=== PATIENT | male | born 1990 | race Caucasian/White ===

== ENCOUNTER 2023-10-12 23:09 | Inpatient (IN) | payer OTHER, SELFPAY ==
[2023-10-12] VITALS (7 sets, daily range): BP systolic 130–164; BP diastolic 80–138; BMI 29.6; BMI 30.7
[2023-10-12 06:40] LABS: % Basophils 0.4 % (0-2); % Eosinophils 2.7 % (0-6); % Immature Granulocytes 0.4 % (0-0.5); % Lymphocytes 23.9 % (20.5-51.1); % Neutrophils 66.6 % (42.2-75.2); Absolute Eosinophils 0.3 10^3/uL (0-0.7); Absolute Lymphocytes 2.6 10^3/uL (1.2-3.4); Absolute Monocytes 0.7 10^3/uL (0.1-0.6); Absolute Neutrophils 7.2 10^3/uL (1.4-6.5); Hematocrit 40.7 % (39.0-52.0); Hemoglobin 14.9 g/dL (13.0-18.0); Mean Corp Hgb Conc. 36.6 g/dL (33.0-37.0); Mean Corpuscular Hgb 31.9 pg (27.0-31.0); Mean Corpuscular Volume 87.2 fL (80.0-94.0); Mean Platelet Volume 9.6 fL (7.4-10.4); Nucleated Red Blood Cells % 0 % (-); Platelet Count 222 10^3/uL (130-400); Red Blood Cell Count 4.67 10^6/uL (4.70-6.10); Red Cell Dist. Width 12.3 % (11.5-14.5); White Blood Cell Count 10.9 10^3/uL (4.8-10.8)
[2023-10-12 06:52] LABS: ALT (SGPT) 22 U/L (0-50); AST (SGOT) 27 U/L (17-59); Albumin 4.6 g/dl (3.5-5.0); Alkaline Phosphatase 114 U/L (38-126); Blood Urea Nitrogen 11 mg/dl (9-20); Calcium 9.7 mg/dl (8.4-10.2); Carbon Dioxide 24 mmol/L (22-30); Chloride 109 mmol/L (98-107); Glucose 121 mg/dl (70-99); Potassium 3.7 mmol/L (3.5-5.1); Sodium 137 mmol/L (135-145); Total Bilirubin 1.4 mg/dl (0.2-1.3); Total Protein 7.7 g/dl (6.3-8.2); eGFR > 60.00
[2023-10-12 07:06] LABS: Lipase 2866 U/L (23-300)
--- NOTE | 2023-10-12 07:38 | ED.GENMED ---
History of Present Illness
General
Chief Complaint: Abdominal Pain
Source: patient and records
Exam Limitations: none
Time Seen by Provider: 10/12/23 07:36
Nursing documentation reviewed up to this point in time: agreed with
Travel History
Have you had any contact with someone who has COVID-19?: No
Do you have any symptoms of coronavirus? Fever > 100 degrees, chills, cough, shortness of breath, sore throat, loss of taste or smell, muscle aches, or headache?: No
History of Present Illness
History of Present Illness:
33-year-old male presents emergency department complaining of epigastric pain rating to his upper back with nausea vomiting and diarrhea since yesterday morning. He has been drinking alcohol recently, has a history of alcoholic pancreatitis. He
was hospitalized in July for same. No pseudocyst was found on CT scan.
Past History
Past History
ED Past Medical History: GERD and Other (Alcoholic pancreatitis)
ED Past Surgical History: Cholecystectomy
Social History
Tobacco: Smoker (1ppd)
Alcohol: Daily (2-3 beers/day)
Drug: Marijuana
Review of Systems
Review of Systems
Allergies reviewed?: Yes
All Other Systems: Not applicable
Constitutional: Reports no symptoms
EENT: Reports no symptoms
Respiratory: Reports no symptoms
Cardiac: Reports no symptoms
ABD/GI: Reports abdominal pain, nausea, vomiting and diarrhea
: Reports no symptoms
Musculoskeletal: Reports no symptoms
Skin: Reports no symptoms
Neurological: Reports no symptoms
Endocrine: Reports no symptoms
Hematologic/Lymphatic: Reports no symptoms
Psychiatric: Reports no symptoms
Phy Exam
Physical Exam
Physical Exam:
Physical Exam
General: Afebrile
Neck: supple. no meningeal signs. normal posterior pharynx
Heart: s1/s2 regular rate and rhythm, no murmur. equal radial
pulses.
HEENT: Pupils equal round reactive to light, EOMI
Lungs: no acute respiratory distress. clear bilaterally
Abdomen: normal bowel sounds. Epigastric tenderness. No CVAT
Neuro: alert and oriented. no focal neurological deficits cranial nerves II through XII intact
Skin: no rash
Psychiatric: well kept. interactive and cooperative
Extremities: no edema. no calf tenderness. negative homans. good distal pulses
Course
Orders/Labs/Results
Orders:
Orders
10/12/23 06:34
Complete Blood Count/With Diff Urgent
Comprehensive Metabolic Panel Urgent
Lipase Urgent
10/12/23 07:37
US Abdomen Complete/Upper Urgent
Comment:
Reason For Exam: epigastric pain, lipase elevated
10/12/23 07:44
IV Insert/Care/Rem.- Treatment PRN
Morphine Sulfate 4 mg IV NOW STA
Ondansetron Injectable [Zofran] 4 mg IV NOW STA
10/12/23 07:45
Lactated Ringers [Lr] 1,000 ml IV BOLUS
10/12/23 09:12
Lactated Ringers [Lr] 1,000 ml IV PRN
10/12/23 Lunch
NPO
Allow oral meds: Yes
Allow clear liquids: Sips of Clears
NPO with Ice Chips: Yes
Morphine Sulfate 4 mg IV NOW STA
10/12/23 11:08
Admit/Transfer Patient As Directed
Co-Sign Provider:
Level of Care: Observation services
Assign to:: Telemetry
Physician / Group: Dr. Michael Morton/Hospitalists
Diagnosis: Suspected Acute Pancreatitis
Reason for Telemetry: Arrhythmia
Date to Stop Telemetry: 10/15/23
Time to Stop Telemetry: 11:00
10/12/23 11:10
Code Status As Directed
Resuscitation Status: Full Code
10/12/23 11:13
Case Management Consult Once
Case Management Consult: Other
Comment: Substance abuse counseling
DIETARY CONSULT Routine
Reason for Consult: Nutrition support, possible refeeding guidelines
0.9% Sodium Chloride [Nss (Preservative Free)] See Protocol IV PRN PRN
FOLic ACID [Folvite] 1 mg 0.9% Sodium Chloride 50 ml [Nss] 50 ml IV DAILYPRN
Lorazepam [Ativan] 1 mg IV Q1HPRN PRN
Lorazepam [Ativan] 1 mg PO Q2HPRN PRN
Lorazepam [Ativan] 2 mg IV Q1HPRN PRN
MSAS SCORE As Directed
MSAS Score 0-4: Repeat MSAS every 2 hours until 0-4 for three consecutive assessments, then every 4 hours x 48
hours.
MSAS Score 5-7: For MILD withdrawl symptoms. Repeat MSAS and RASS every 2 hours
MSAS Score 8-11: For MODERATE withdrawal symptoms. Repeat MSAS and RASS every 1 hour. Consider ICU or IMU
level of care.
MSAS Score > 11: For SEVERE withdrawal symptoms. Repeat MSAS and RASS every 1 hour. Notify provider, consider
ICU level of care.
MSAS Additional Instructions: If no improvement or no decrease in score from severe to moderate within 12
hours, consult psychiatry
MSAS Notify Provider: Notify provider if patient requires more than 10 mg of Lorazepam in eight hour period.
10/12/23 11:32
GASTROINTESTINAL CONSULT Routine
Consulting Provider: Geraldine Ledezma
Was physician already notified: Yes
Reason for consult: Suspected Acute Pancreatitis
10/12/23 11:41
Bladder Scan As Directed
Follow Bladder Retention/Intermittent Cath Algorithm?: Yes
PRN if no void in __ hours: 6
Frequency: Per Retention Algorithm
If Bladder Scan Result >: 400
then:: Straight cath
Straight Cath As Directed
Frequency: Per Retention Algorithm
Additional Instructions: straight cath as needed per acute urinary retention algorithm for 24 hrs
Additional Instructions: for bladder scan greater than 400 mL
10/12/23 11:53
Electrocardiogram (*1) Routine
Reason for Study: QTc Monitoring
CR Chest - 2 Views Urgent
Comment:
Reason For Exam: Wheezing
10/12/23 12:00
FOLic ACID [Folvite] 1 mg PO DAILY
Thiamine Injection 200 mg IV Q12
10/12/23 12:41
MR Abdomen W/o & W Contrast Routine
Comment: with MRCP
Reason For Exam: recurrent pancreatitis
Recent pill cam endoscopy?: No
10/12/23 12:44
HYDROmorphone [Dilaudid] 0.5 mg IV Q4HPRN PRN
Ondansetron Injectable [Zofran] 4 mg IV Q6HPRN PRN
10/12/23 12:44
Activity As Directed
Activity Level: As Tolerated
Intake/ Output As Directed
Frequency: q12h
Pneumatic Compression Sleeves As Directed
Type: Knee high
Vital Signs As Directed
Frequency: Per unit guidelines
DX Deep Vein Thrombosis Video Routine
10/12/23 13:00
Flush (0.9% Sodium Chloride) [Flush (Nss)] See Dose Instructions IV PER PROTOCOL
10/12/23 13:02
Alcohol Urgent
B-Hydroxybutyrate Urgent
GGTP Urgent
Lipid Profile [Cardiovascular Evaluation] Routine
Magnesium Urgent
PTT Urgent
Phosphorus Urgent
Prothrombin Time Urgent
10/12/23 15:12
HYDROmorphone [Dilaudid] 0.25 mg IV NOW STA
10/12/23 15:14
Oxycodone [Roxicodone] 5 mg PO NOW STA
10/12/23 16:00
Lactated Ringers [Lr] 1,000 ml IV 250 mls/hr
10/12/23 17:16
Fentanyl, Urine Routine
Urinalysis Routine
Date Specimen was Collected: 10/12/23
Time Specimen was Collected: 17:14
Urine Drug Abuse Screen Routine
Date Specimen was Collected: 10/12/23
Time Specimen was Collected: 17:14
Urine Microscopic Routine
Date Specimen was Collected: 10/12/23
Time Specimen was Collected: 17:14
10/12/23 17:37
IgG Subclass 4 [S] Routine
10/12/23 18:00
Enoxaparin Sodium [Lovenox] 40 mg SC QPM
10/12/23 19:57
HYDROmorphone [Dilaudid] 0.25 mg IV NOW STA
10/13/23 06:08
Complete Blood Count/No Diff IN AM
Comprehensive Metabolic Panel IN AM
Magnesium IN AM
10/14/23 05:55
Complete Blood Count/No Diff IN AM
Comprehensive Metabolic Panel IN AM
10/15/23 06:00
Complete Blood Count/No Diff IN AM
Comprehensive Metabolic Panel IN AM
10/15/23 08:00
Thiamine HCl [Vitamin B1] 100 mg PO BID
10/15/23 11:00
DC Protocol for Telemetry ONCE
10/16/23 06:00
Complete Blood Count/No Diff IN AM
Comprehensive Metabolic Panel IN AM
10/17/23 06:00
Complete Blood Count/No Diff IN AM
Comprehensive Metabolic Panel IN AM
10/18/23 06:00
Complete Blood Count/No Diff IN AM
Comprehensive Metabolic Panel IN AM
10/19/23 06:00
Complete Blood Count/No Diff IN AM
Comprehensive Metabolic Panel IN AM
10/20/23 06:00
Complete Blood Count/No Diff IN AM
Comprehensive Metabolic Panel IN AM
10/21/23 06:00
Complete Blood Count/No Diff IN AM
Comprehensive Metabolic Panel IN AM
10/22/23 06:00
Complete Blood Count/No Diff IN AM
Comprehensive Metabolic Panel IN AM
Abnormal Lab Results
10/12/23 10/12/23 10/12/23
06:34 13:02 17:16
WBC 10.9 H 10^3/uL
(4.8-10.8)
RBC 4.67 L 10^6/uL
(4.70-6.10)
MCH 31.9 H pg
(27.0-31.0)
Absolute Neuts (auto) 7.2 H 10^3/uL
(1.4-6.5)
Absolute Monos (auto) 0.7 H 10^3/uL
(0.1-0.6)
Chloride 109 H mmol/L
(98-107)
Creatinine 0.5 L mg/dL
(0.7-1.3)
Glucose 121 H mg/dl
(70-99)
Total Bilirubin 1.4 H mg/dl
(0.2-1.3)
GGT 293 H U/L
(15-73)
Triglycerides 153 H mg/dl
(10-149)
Lipase 2866 H* U/L
(23-300)
Urine Ketones 3+ A
(Negative)
Ur Leukocyte Esterase Trace A
(Negative)
Urine Opiates Screen Positive H
(Negative)
U Marijuana (THC) Screen Positive H
(Negative)
B-Hydroxybutyrate 0.51 H mmol/L
(0.02-0.27)
10/12/23 06:34
10/12/23 06:34
Vital Signs
Initial and Last Documented VS:
Initial Vital Signs
Temp Pulse Resp BP Pulse Ox
97.6 F 80 20 152/98 96
10/12/23 06:19 10/12/23 06:19 10/12/23 06:19 10/12/23 06:19 10/12/23 06:19
Last Documented Vital Signs
Temp Pulse Resp BP Pulse Ox
98.1 F 74 16 133/87 98
10/14/23 11:25 10/14/23 11:25 10/14/23 11:25 10/14/23 11:25 10/14/23 11:25
MDM/Problems Addressed
Differential Diagnosis Includes:
Pancreatitis, reflux
MDM/Problems Addressed:
33-year-old male with alcoholic pancreatitis. Abdominal ultrasound ordered. IV morphine, Zofran and LR ordered. Admit to hospitalist.
Chronic conditions affecting care: Other (Pancreatitis)
Acute Exacerbation and/or Progression of Chronic Illness: Other (Pancreatitis)
*Radiology
Radiology exam reviewed: radiology read reviewed (Ultrasound abdomen no acute findings)
*Pulse Oximetry
Patient hypoxic: no
*EKG
Interpreted by ED Provider?: NA
*Cold Rolling Coordinator Interpretation
Rate: Cold Rolling Coordinator- N/A
*Critical Care Note
Total Time (30-74mins, 75-104mins- exclusive of procedures): Not Applicable
Data Reviewed
Review of Other/Old Records Reveals: Discharge Summary (Discharge summary from July 2023 for alcoholic pancreatitis)
Source: records
Patient Management
Social determinants of health affecting care: Living situation and Substance abuse (Alcoholism)
Discussion with other providers: Hospitalist
Escalation/DeEscalation of care consider admission/obs:
Admit indicated
ED Attending Note
-
Portions of this chart may have been created with voice recognition software.� Occasional wrong word or��sound alike� substitutions may have occurred due to the inherent limitations of voice recognition software.
Discharge Plan
Departure
Patient Disposition: Admit
Date of Disposition: 10/12/23
Time of Disposition: 07:49
Admit to: Med/Surg
Presentation/result/management discussed w/ accepting MD/DO: Hospitalist
Patient with high blood pressure during this ER visit?: Yes
Condition: Good
Discharge Problem:
Pancreatitis
Interventions
Interventions:
*Risk Screen - Suicide Last Done: 10/12/23 06:19
*General Assessment Last Done: 10/12/23 08:06
*Neglect/Abuse Screening Last Done: 10/12/23 06:19
ED- Fall Risk Assessment Last Done: 10/12/23 08:07
*ED COVID-19 Vaccine History Last Done: 10/12/23 06:19
*Nursing Disposition Last Done: 10/12/23 12:49
DW-Lejiiz-Pnhcvwnlmd Assessment Last Done: 10/12/23 08:07
Discharge Date and Time
Discharge Date/Time: 10/12/23 12:50
[2023-10-12] MEDS: LR 1000 IV ×4 (08:10→20:13)
[2023-10-12] MEDS: MORPHINE SULFATE 4 MG IV ×2 (08:10→10:16)
[2023-10-12] MEDS: ZOFRAN 4 MG IV ×2 (08:10→15:20)
--- NOTE | 2023-10-12 11:34 | HPS.HSE ---
Family Physician
-
Family Physician: * NONE
Chief Complaint
-
Abdominal and Back Pain
History of Present Illness
33 y/o male with past medical history of recurrent pancreatitis and alcohol use disorder presented with upper abdominal and back pain for a 1-day duration. He also has had nausea and vomiting, and it has been hard to take a deep breath due to the
intense abdominal and back pain. He has not urinated today. He drinks 2 beers daily chronically, and denied ever having alcohol withdrawal. His last drink, 1 beer, was 48 hours ago.
Patient was recently hospitalized from August 03, 2023 to August 08, 2023 when he was found to have acute pancreatitis but did develop some scrotal swelling and was felt to have some mild underlying ascites and was placed on low dose Lasix. He was
also given Tramadol for pain. Currently he says the only medication he is taking is Omeprazole.
Medical History
Past Medical History
Past Medical History: Reports Other (As per HPI above)
Past Surgical History: Reports Cholecystectomy
Social History
Tobacco: Smoker
Alcohol: Chronic Alcoholic
Drug: Marijuana
Family History
Family History: Diabetes and Hypertension
Allergies / Home Medications
Allergies reflects when Allergies were last updated in [facility].
Home Medications with original date entered in [facility]
Allergy/Medication List:
Allergies
Allergy/AdvReac Type Severity Reaction Status Date / Time
No Known Allergies Allergy Unverified 10/12/23 06:18
Home Medications
omeprazole 20 mg tablet,delayed release 20 mg PO HS 10/12/23
Review of Systems
-
A 12 point ROS was completed and negative except as noted: Yes
Physical Exam
Vital Signs
Vital Signs
Temp Pulse Resp BP Pulse Ox
97.6 F 80 20 133/95 96
10/12/23 06:19 10/12/23 06:19 10/12/23 06:19 10/12/23 10:23 10/12/23 10:45
Physical Exam
General: Pain
HEENT: NormoCephalic
Respiratory: Wheezes
Cardiac: S1/S2 and Regular Rhythm
GI: Soft, Normal Bowel Sounds and Tender
Musculoskeletal: No Cyanosis and No Edema
Skin: Warm and Dry
Neuro: Awake, Alert and AO x 3
Psych: Calm and Intact Judgment/Insight
Laboratory Results
-
10/12/23 06:34
10/12/23 06:34
Laboratory Results
Total Bilirubin 1.4 mg/dl (0.2-1.3) H 10/12/23 06:34
AST 27 U/L (17-59) 10/12/23 06:34
ALT 22 U/L (0-50) 10/12/23 06:34
Alkaline Phosphatase 114 U/L (38-126) 10/12/23 06:34
Lipase 2866 U/L (23-300) H* 10/12/23 06:34
Impression/Plan
-
Assessment/Plan
Presentation with Severe Upper Abdominal Pain
Concern for Acute Pancreatitis
Recurrent Pancreatitis
-LR IV fluids at 250 cc/hr
-Monitor urine output and lab-work
-Bladder scans
-Last admission patient had some scrotal swelling and fluid retention -- monitor for fluid overload
-Pain control
-NPO
-Hold Omeprazole
-GI consulted, recommendations appreciated
Wheezing
-Check CXR
DVT PPx: Lovenox
Code Status: Full Code
--- NOTE | 2023-10-12 11:59 | CON.GI ---
Addendum entered and electronically signed by Geraldine Ledezma MD 10/12/23 17:30:
I saw and examined the patient.
The PARTY CHIEF or PA's note was reviewed and I agree with the note.
Comment:
Pt with a hx of pancreatitis presumed from alcohol with repeat pancreatitis. does smoke. no family history. abdominal pain
abs: tender distended mildly
impression
pancreatiitis
prior cholecystectomy
plan
IVF
pain control
alcohol and tobacco cessation
check IGG4, triglycerides, MRI/MRCP
NPO
Addendum entered and electronically signed by Delaney Almonte NP 10/12/23 13:23:
Leukocytosis without fevers. CXR pending per hospitalist. UA without obvious signs of infection. May be reactive with pancreatitis.
Original Note:
Consultation
-
Date/Time Consultation Requested: 10/12/23
Date/Time Consultation Performed: 10/12/23 @ 12:15
Requesting Provider: Dr. Morton
Performing Provider: RASHID Gauthier; Dr. Geraldine Ledezma
Reason for Consultation: alcoholic pancreaitis
Medical History
Chief Complaint / HPI
Chief Complaint: abdominal pain
History of Present Illness:
The patient is a 33-year-old male with a past medical history significant for recurrent pancreatitis, cholecystectomy, alcohol use disorder, GERD on daily omeprazole, who presented to the emergency room with complaints of abdominal pain and back
pain. We are being asked to evaluate for acute alcoholic pancreatitis. Upon review of prior records, he had been hospitalized earlier this year in July with acute pancreatitis. During that admission he did develop some scrotal swelling and it
was thought he may have received too much IV fluids. He underwent CT at that time which did confirm pancreatitis but no signs of ascites. He was prescribed Lasix 20 mg every other day at that time and was advised to follow-up with his PCP. The
patient reports that morning he awoke with abdominal pain that is radiating to his back. He notes that he does drink about 2 beers on a daily basis, but reports having only drank 1 beer the day prior to his onset of symptoms. The pain is
located in the middle of his abdomen and radiates to the left side of his back. He did not take any medications at home for the pain. He notes that laying on his side does help somewhat but not significantly. He also admits to nausea and vomiting
x 3 episodes between home and in the hospital. He denies any hematemesis. He also admits to diarrhea without melena or hematochezia, which she reports is common when he has pancreatitis. He does take omeprazole daily for history of reflux which
is controlled. He otherwise denies any fevers, chills, chest pain, shortness of breath, lower extremity swelling, or signs of alcohol withdrawal. His last alcoholic beverage as mentioned above was on Sunday. He denies any family history of
pancreatic cancer or pancreatic disease. He denies any history of liver disease. He has never had a EGD or colonoscopy in the past. He denies use of blood thinners. He notes history of pancreatitis 3 times in the past, thought to be secondary to
alcohol. He also notes that 2 years ago he did require having his gallbladder removed as this was thought to be because of pancreatitis as well. He notes that he has seen a GI physician in [place] in the past but has had no endoscopic workup
for his pancreatitis. Routine labs in the ER showed a WBC 10.9, hemoglobin 14.9, platelets 222,000, sodium 137, potassium 3.7, BUN 11, creatinine 0.5, total bilirubin 1.4, AST 27, ALT 22, alk phos 114, albumin 4.6, lipase 2866. Lipid profile is
pending along with coags. He was placed on IV fluids, made n.p.o., admitted for further evaluation by GI.
Past Medical History
Past Medical History: GERD and Other (ETOH use, pancreatitis)
Past Surgical History: Cholecystectomy
Social History
Tobacco: Smoker
Alcohol: Daily (2 beers daily)
Drug: Marijuana (Daily)
Family History
Family History: Other (Maternal grandfather with colon cancer)
Allergies / Home Medications
Allergy/AdvReac Type Severity Reaction Status Date / Time
No Known Allergies Allergy Unverified 10/12/23 06:18
�Medication �Instructions �Recorded
omeprazole 20 mg tablet,delayed 20 mg PO HS 10/12/23
release
Review of Systems
-
History Source: Patient
Constitutional: Reports No Symptoms
EENT: Reports No Symptoms
Respiratory: Reports No Symptoms
Cardiac: Reports No Symptoms
Abdomen/GI: Reports Abdominal Pain, Nausea, Vomiting and Diarrhea
: Reports No Symptoms
Musculoskeletal: Reports Other (Left-sided back pain)
Skin: Reports No Symptoms
Neurological: Reports No Symptoms
Vital Signs
Temp Pulse Resp BP Pulse Ox
97.6 F 80 20 133/95 96
10/12/23 06:19 10/12/23 06:19 10/12/23 06:19 10/12/23 10:23 10/12/23 10:45
Physical Exam
Exam
General: Well Developed, Well Nourished and Pain
HEENT: Normocephalic, Anicteric and Atraumatic
Respiratory: Clear
Cardiac: S1/S2 and Regular Rhythm
Breast: N/A
GI: Soft, Normal Bowel Sounds, Tender (diffusely tenderness mid to right upper abdomen) and Distended (mildly distended)
Musculoskeletal: No Edema
Skin: Warm and Dry
Neuro: Awake, Alert and Oriented
Psych: Calm
Results
WBC 10.9 10^3/uL (4.8-10.8) H 10/12/23 06:34
Hgb 14.9 g/dL (13.0-18.0) 10/12/23 06:34
Hct 40.7 % (39.0-52.0) 10/12/23 06:34
MCV 87.2 fL (80.0-94.0) 10/12/23 06:34
Plt Count 222 10^3/uL (130-400) 10/12/23 06:34
Absolute Neuts (auto) 7.2 10^3/uL (1.4-6.5) H 10/12/23 06:34
Sodium 137 mmol/L (135-145) 10/12/23 06:34
Potassium 3.7 mmol/L (3.5-5.1) 10/12/23 06:34
Chloride 109 mmol/L (98-107) H 10/12/23 06:34
Carbon Dioxide 24 mmol/L (22-30) 10/12/23 06:34
BUN 11 mg/dl (9-20) 10/12/23 06:34
Creatinine 0.5 mg/dL (0.7-1.3) L 10/12/23 06:34
Calcium 9.7 mg/dl (8.4-10.2) 10/12/23 06:34
Total Bilirubin 1.4 mg/dl (0.2-1.3) H 10/12/23 06:34
AST 27 U/L (17-59) 10/12/23 06:34
ALT 22 U/L (0-50) 10/12/23 06:34
Alkaline Phosphatase 114 U/L (38-126) 10/12/23 06:34
Lipase 2866 U/L (23-300) H* 10/12/23 06:34
Diagnostic Image Results:
10/12/23 ultrasound of the abdomen:
1. Status post cholecystectomy. Common bile duct measures 6 mm in diameter, likely within normal limits following cholecystectomy.
2. Mild splenic enlargement of unknown etiology.
08/03/2023 CT abdomen pelvis with IV contrast:IMPRESSION: Acute pancreatitis. Significant stranding about the pancreas. No discrete fluid collection to suggest a pseudocyst or abscess. Splenic and portal veins are patent. SMV is patent. Small
paraumbilical hernia containing only fat. Hepatosplenomegaly.
Prior GI Procedures:
EGD: none
Colonoscopy: none
Assessment / Plan
-
The patient is a 33-year-old male with a past medical history significant for recurrent pancreatitis, cholecystectomy, alcohol use disorder, GERD on daily omeprazole, who presented to the emergency room with complaints of abdominal pain and back
pain. We are being asked to evaluate for acute alcoholic pancreatitis. This is his third reported episode of pancreatitis. Was last seen in the hospital in July with pancreatitis thought to be secondary to alcohol. He has had a
cholecystectomy in the past during admission at [facility] for pancreatitis 2 years ago. He reports he drinks 2 beers on a daily basis, with his last drink being Sunday with 1 beer. Symptoms consistent with pancreatitis with elevated lipase in
the 1999's. Ultrasound imaging was done which showed no biliary ductal dilation or obvious pancreatic inflammation although not all the pancreas was visualized. Total bilirubin 1.4 otherwise normal LFTs. He does have ongoing pain despite pain
medication and IV fluids.
Problem list:
-recurrent pancreatitis, third episode per patient
-elevated TB
-daily alcohol use
-s/p CCY
-Chronic GERD on omeprazole
-Daily marijuana use
-Current cigarette smoker
Recommendations:
-Etiology of pancreatitis possibly secondary to alcohol versus biliary etiology versus other. No new medications.
---No obvious biliary ductal dilation or inflammation of the pancreas on ultrasound imaging but with elevated lipase and pain. Likely alcohol related but with recurrent episodes.
-Recommend MRI with MRCP for further evaluation given recurrent episodes of pancreatitis
-Continue IV fluids with lactated Ringer's at 250 cc/h and monitor for swelling with history of scrotal swelling during his last admission.
-Encourage incentive spirometer use and deep breathing exercises
-PRN analgesics as per hospitalist, discussed with Dr. Morton
-Trend LFTs
-Strongly encouraged alcohol cessation going forward which he is agreeable to. I did also recommend smoking cessation as cigarette use has been linked to pancreatic inflammation.
-Follow triglyceride levels
-Send IgG4
-Further plan pending MRI
-If pain improves by later today can consider initiation of clear liquid diet
-Noted that the patient admits he does not have insurance, which will limit his outpatient care options.
Data Reviewed
-
Ultrasound: Report Reviewed by me
Old Records: Reviewed
-
-
Thank you for consultation and allowing me to participate in the patient's care. Please call the actuarial consultant GI physician during the after hours with any questions or concerns.
[2023-10-12] MEDS: DILAUDID 0.5 MG IV ×3 (13:00→21:38)
[2023-10-12] MEDS: THIAMINE INJECTION 200 MG IV ×2 (13:01→20:14)
[2023-10-12 13:28] LABS: INR 1.09; PT 13.9 Sec (11.4-14.6)
[2023-10-12 13:29] LABS: APTT 27.6 Sec (23.4-35.0)
[2023-10-12 13:35] LABS: GGTP 293 U/L (15-73); HDL Cholesterol 62 mg/dl; LDL Cholesterol, Calculated 74 mg/dl; Magnesium 1.6 mg/dl (1.6-2.3); Phosphorus 4.1 mg/dl (2.5-4.5); Total Cholesterol 166 mg/dl (50-199); Triglyceride 153 mg/dl (10-149); Very Low Density Lipoprotein 30 mg/dl (0-30)
[2023-10-12 13:42] LABS: B-Hydroxybutyrate 0.51 mmol/L (0.02-0.27)
[2023-10-12] MEDS: FOLVITE 50.2000000000000028 MG IV (15:20)
[2023-10-12] MEDS: FOLVITE PO (15:21)
[2023-10-12] MEDS: ROXICODONE 5 MG PO (15:53)
[2023-10-12 17:30] LABS: Urine Albumin Trace (Neg - Trace); Urine Bilirubin Negative (Negative); Urine Character Clear (Clear); Urine Color Yellow; Urine Glucose Negative (Negative); Urine Ketone 3+ (Negative); Urine Leukocyte Trace (Negative); Urine Nitrite Negative (Negative); Urine Occult Blood Negative (Negative); Urine Specific Gravity 1.015 (<1.030); Urine Urobilinogen Negative (Neg - 1+)
--- NOTE | 2023-10-12 17:30 | W.PN.UPDATE ---
Update Note
Progress Note Update
for billing purposes only
[2023-10-12] MEDS: LOVENOX SC (17:35)
[2023-10-12 17:44] LABS: Amphetamines Negative (Negative); Barbiturates Negative (Negative); Benzodiazepines Negative (Negative); Buprenorphine Negative (Negative); Cocaine Negative (Negative); Marijuana Positive (Negative); Methadone Negative (Negative); Methamphetamines Negative (Negative); Opiates Positive (Negative); Phencyclidine Negative (Negative); Tricyclic Antidepressants Negative (Negative)
[2023-10-12 17:48] LABS: Urine Mucus Many
[2023-10-12 17:50] LABS: Urine Squamous Cell 0-2 /LPF (Few); Urine White Cell 0-2 /HPF (0-5)
[2023-10-12 18:07] LABS: Fentanyl, Urine Negative (Negative)
--- NOTE | 2023-10-12 18:37 | PTCARENOTE ---
Pt reporting 4 BM's in last 24 hours but none since admission. Spoke with Niki in Infection prevention and confirmed that no isolation precautions are necessary due to suspected pancreatitis as cause.
[2023-10-12] MEDS: DILAUDID 0.25 MG IV (20:13)
[2023-10-13] MEDS: LR 1000 IV ×3 (00:17→08:21)
[2023-10-13] MEDS: DILAUDID 0.5 MG IV ×5 (02:00→18:40)
[2023-10-13 03:00] VITALS: BP 135/73
[2023-10-13 06:00] VITALS: BMI 31.3
[2023-10-13 07:22] LABS: Hemoglobin 14.1 g/dL (13.0-18.0); Mean Corp Hgb Conc. 36.2 g/dL (33.0-37.0); Mean Corpuscular Hgb 31.8 pg (27.0-31.0); Mean Platelet Volume 10.4 fL (7.4-10.4); Platelet Count 162 10^3/uL (130-400); Red Blood Cell Count 4.43 10^6/uL (4.70-6.10); White Blood Cell Count 10.7 10^3/uL (4.8-10.8)
[2023-10-13 07:30] VITALS: BP 136/90
[2023-10-13 07:56] LABS: ALT (SGPT) 14 U/L (0-50); AST (SGOT) 21 U/L (17-59); Albumin 3.6 g/dl (3.5-5.0); Alkaline Phosphatase 111 U/L (38-126); Blood Urea Nitrogen 6 mg/dl (9-20); Calcium 8.7 mg/dl (8.4-10.2); Carbon Dioxide 21 mmol/L (22-30); Chloride 105 mmol/L (98-107); Estimated Creatinine Clearance > 125 ml/min; Glucose 66 mg/dl (70-99); Magnesium 1.3 mg/dl (1.6-2.3); Potassium 3.4 mmol/L (3.5-5.1); Sodium 134 mmol/L (135-145); Total Bilirubin 1.7 mg/dl (0.2-1.3); eGFR > 60.00
[2023-10-13] MEDS: THIAMINE INJECTION 200 MG IV ×2 (08:21→20:56)
[2023-10-13] MEDS: FOLVITE 1 MG PO (08:21)
[2023-10-13] MEDS: MAGNESIUM SULFATE 50 IV (08:37)
[2023-10-13] MEDS: KCL 40 MEQ PO (10:28)
[2023-10-13 11:49] VITALS: BP 145/101
--- NOTE | 2023-10-13 12:27 | W.PN.GI.CBS2 ---
Today's Communication / Plan
-
advance diet if tolerates clear liquids then advance
Assessment / Plan
-
The patient is a 33-year-old male with a past medical history significant for recurrent pancreatitis, cholecystectomy, alcohol use disorder, GERD on daily omeprazole, who presented to the emergency room with complaints of abdominal pain and back
pain. We are being asked to evaluate for acute alcoholic pancreatitis. This is his third reported episode of pancreatitis. Was last seen in the hospital in July with pancreatitis thought to be secondary to alcohol. He has had a
cholecystectomy in the past during admission at [facility] for pancreatitis 2 years ago. He reports he drinks 2 beers on a daily basis, with his last drink being Sunday with 1 beer. Symptoms consistent with pancreatitis with elevated lipase in
the . Ultrasound imaging was done which showed no biliary ductal dilation or obvious pancreatic inflammation although not all the pancreas was visualized. Total bilirubin 1.4 otherwise normal LFTs. He does have ongoing pain despite pain
medication and IV fluids.
Problem list:
-recurrent pancreatitis, third episode per patient
-elevated TB
-daily alcohol use
-s/p CCY
-Chronic GERD on omeprazole
-Daily marijuana use
-Current cigarette smoker
Recommendations:
- advance diet
- alcohol/tobacco cessation
- recheck lipase
Subjective
Subjective
Date of Service: October 13, 2023
Pt much less pain, hungry
Objective
Data Reviewed
Laboratory Data:
Laboratory Results
10/13/23 06:08
10/13/23 06:08
Laboratory Results
PT 13.9 Sec (11.4-14.6) 10/12/23 13:02
INR 1.09 10/12/23 13:02
APTT 27.6 Sec (23.4-35.0) 10/12/23 13:02
Phosphorus 4.1 mg/dl (2.5-4.5) 10/12/23 13:02
Magnesium 1.3 mg/dl (1.6-2.3) L 10/13/23 06:08
Total Bilirubin 1.7 mg/dl (0.2-1.3) H 10/13/23 06:08
AST 21 U/L (17-59) 10/13/23 06:08
ALT 14 U/L (0-50) 10/13/23 06:08
Alkaline Phosphatase 111 U/L (38-126) 10/13/23 06:08
Lipase 2866 U/L (23-300) H* 10/12/23 06:34
Vital Signs and I&O:
Vital Signs
Temp Pulse Resp BP Pulse Ox
98 F 86 18 145/101 98
10/13/23 11:49 10/13/23 11:49 10/13/23 11:49 10/13/23 11:49 10/13/23 11:49
I&O
10/12/23 10/13/23 10/14/23
06:59 06:59 06:59
Intake Total 870 / 870 3000 / 3000
Balance 870 / 870 3000 / 3000
Physical Exam
Physical Exam
GI: Soft, Non Distended and Non Tender (only mildly tender)
Extremities: Warm
Neuro: Non Focal
--- NOTE | 2023-10-13 13:39 | W.PN.HOSP.TC ---
Today's Communication/Plan
-
Pain improving
Some scrotal swelling and swelling in hands from intravenous fluids -- okay to stop intravenous fluids as per GI [facility] conversation on October 13, 2023
Monitor for improvement in patient's swelling in hands and scrotal swelling
Assessment / Plan
Assessment / Plan
Physical Exam
General: Pain
HEENT: NormoCephalic
Respiratory: Wheezes
Cardiac: S1/S2 and Regular Rhythm
GI: Soft, Normal Bowel Sounds and Tender
Musculoskeletal: No Cyanosis and No Edema
Skin: Warm and Dry
Neuro: Awake, Alert and AO x 3
Psych: Calm and Intact Judgment/Insight
Assessment/Plan
Presentation with Severe Upper Abdominal Pain
Concern for Acute Pancreatitis
Recurrent Pancreatitis
-Monitor urine output and lab-work
-Bladder scans
-Last admission patient had some scrotal swelling and fluid retention -- this admission also had some hand swelling and scrotal swelling -- stopped IV fluids as his symptoms have improved -- okay to stop IV fluids as per GI on 10/13/23
-Pain control
-Diet advanced to clear liquids -- continue to advance as tolerated with a goal of low fat diet
-Hold Omeprazole
-GI consulted, recommendations appreciated
-MRI abdomen results noted
Wheezing
-Chest x-ray showed no acute cardiopulmonary process, as per radiologist's report
Hypokalemia
Hypomagnesemia -- likely from alcohol
-Replaced
-Monitor through morning labs
DVT PPx: Lovenox
Code Status: Full Code
Anticipated Discharge: Within 24 hours
Subjective/Interval History
-
Date of Service: October 13, 2023
Patient was seen and examined. He reported that his pain has improved, and he is wondering if his diet can be advanced.
Objective Data
-
Labs:
Laboratory Results
10/13/23
06:08
WBC 10.7
Hgb 14.1
Hct 39.0
Plt Count 162 D
Sodium 134 L
Potassium 3.4 L
Chloride 105
Carbon Dioxide 21 L
BUN 6 L
Creatinine 0.4 L
Glucose 66 L
Calcium 8.7
Total Bilirubin 1.7 H
AST 21
ALT 14
Alkaline Phosphatase 111
Vital Signs:
Vital Signs
Temp Pulse Resp BP Pulse Ox
98 F 86 18 145/101 98
10/13/23 11:49 10/13/23 11:49 10/13/23 11:49 10/13/23 11:49 10/13/23 11:49
I&O
10/12/23 10/13/23 10/14/23
06:59 06:59 06:59
Intake Total 870 / 870 3000 / 3000
Balance 870 / 870 3000 / 3000
[2023-10-13 15:22] VITALS: BP 139/88
--- NOTE | 2023-10-13 16:16 | CM ---
Addendum entered by Vianney Wilson 10/13/23 16:26:
Provided information for [facility]
Original Note:
Met with patient at bedside; initial assessment and CM Consult completed
Pharmacy verified: [facility]
Does not have health insurance and does not have a PCP
Patient reported that he lives in a multi-level home in [place]; his father lives with him. Girlfriend lives in [place] and he spends a lot of time at her home. Home in [place] has a powder room on the 1st floor; 2nd floor bath has tub
w/shower
PLOF: patient reported that he is independent with ambulation, steps, and ADLs; drives
SNF/Rehab/Home Care utilization history: none
Transportation: girlfriend will provide ride home
Counseling for substance abuse offered; patient declined. He reported that he is addressing his ETOH use with a personal friend
Plan: discharge to home when medically stable
[2023-10-13] MEDS: LOVENOX 40 MG SC (17:45)
[2023-10-13 19:23] VITALS: BP 153/95
[2023-10-13] MEDS: PEPCID 40 MG PO (20:55)
[2023-10-13] MEDS: DILAUDID 0.25 MG IV (21:46)
[2023-10-13 23:44] VITALS: BP 136/88
[2023-10-14] MEDS: DILAUDID 0.5 MG IV ×4 (00:26→12:53)
[2023-10-14 03:01] VITALS: BP 127/77
[2023-10-14 06:00] VITALS: BMI 30.3
[2023-10-14 07:11] VITALS: BP 145/87
[2023-10-14 08:17] LABS: Hematocrit 35.6 % (39.0-52.0); Hemoglobin 12.8 g/dL (13.0-18.0); Mean Corpuscular Hgb 31.4 pg (27.0-31.0); Mean Corpuscular Volume 87.3 fL (80.0-94.0); Mean Platelet Volume 10.5 fL (7.4-10.4); Platelet Count 180 10^3/uL (130-400); Red Blood Cell Count 4.08 10^6/uL (4.70-6.10); Red Cell Dist. Width 12.1 % (11.5-14.5); White Blood Cell Count 7.1 10^3/uL (4.8-10.8)
[2023-10-14] MEDS: THIAMINE INJECTION 200 MG IV (08:22)
[2023-10-14] MEDS: FLUSH (NSS) 2 FLUSH IV (08:23)
[2023-10-14] MEDS: FOLVITE 1 MG PO (08:23)
[2023-10-14 08:27] LABS: ALT (SGPT) 14 U/L (0-50); AST (SGOT) 21 U/L (17-59); Albumin 3.8 g/dl (3.5-5.0); Alkaline Phosphatase 137 U/L (38-126); Blood Urea Nitrogen 3 mg/dl (9-20); Calcium 9.3 mg/dl (8.4-10.2); Carbon Dioxide 27 mmol/L (22-30); Chloride 102 mmol/L (98-107); Estimated Creatinine Clearance > 125 ml/min; Glucose 82 mg/dl (70-99); Potassium 4.2 mmol/L (3.5-5.1); Sodium 136 mmol/L (135-145); Total Bilirubin 1.2 mg/dl (0.2-1.3); Total Protein 6.4 g/dl (6.3-8.2); eGFR > 60.00
[2023-10-14 08:54] LABS: Lipase 1615 U/L (23-300)
--- NOTE | 2023-10-14 09:20 | W.PN.GI.CBS2 ---
Today's Communication / Plan
-
advance diet
Assessment / Plan
-
The patient is a 33-year-old male with a past medical history significant for recurrent pancreatitis, cholecystectomy, alcohol use disorder, GERD on daily omeprazole, who presented to the emergency room with complaints of abdominal pain and back
pain. We are being asked to evaluate for acute alcoholic pancreatitis. This is his third reported episode of pancreatitis. Was last seen in the hospital in July with pancreatitis thought to be secondary to alcohol. He has had a
cholecystectomy in the past during admission at [facility] for pancreatitis 2 years ago. He reports he drinks 2 beers on a daily basis, with his last drink being Sunday with 1 beer. Symptoms consistent with pancreatitis with elevated lipase in
the . Ultrasound imaging was done which showed no biliary ductal dilation or obvious pancreatic inflammation although not all the pancreas was visualized. Total bilirubin 1.4 otherwise normal LFTs. He does have ongoing pain despite pain
medication and IV fluids.
Problem list:
-recurrent pancreatitis, third episode per patient
-elevated TB
-daily alcohol use
-s/p CCY
-Chronic GERD on omeprazole
-Daily marijuana use
-Current cigarette smoker
Recommendations:
- clinically significantly improved, lipase coming down
- ok for trial of low fat diet
Subjective
Subjective
Date of Service: October 14, 2023
pt tolerated full liquid diet with no issue. Pain much improved, wants to try more food
Objective
Data Reviewed
Laboratory Data:
Laboratory Results
10/14/23 05:55
10/14/23 05:55
Laboratory Results
PT 13.9 Sec (11.4-14.6) 10/12/23 13:02
INR 1.09 10/12/23 13:02
APTT 27.6 Sec (23.4-35.0) 10/12/23 13:02
Phosphorus 4.1 mg/dl (2.5-4.5) 10/12/23 13:02
Magnesium 2.0 mg/dl (1.6-2.3) 10/14/23 05:55
Total Bilirubin 1.2 mg/dl (0.2-1.3) 10/14/23 05:55
AST 21 U/L (17-59) 10/14/23 05:55
ALT 14 U/L (0-50) 10/14/23 05:55
Alkaline Phosphatase 137 U/L (38-126) H 10/14/23 05:55
Lipase 1615 U/L (23-300) H* 10/14/23 05:55
Vital Signs and I&O:
Vital Signs
Temp Pulse Resp BP Pulse Ox
97.9 F 65 16 145/87 99
10/14/23 07:11 10/14/23 07:11 10/14/23 07:11 10/14/23 07:11 10/14/23 07:11
I&O
10/13/23 10/14/23 10/15/23
06:59 06:59 06:59
Intake Total 870 / 870 4440 / 4440
Balance 870 / 870 4440 / 4440
Physical Exam
Physical Exam
GI: Soft, Non Distended and Non Tender
[2023-10-14 11:25] VITALS: BP 133/87
--- NOTE | 2023-10-14 11:47 | W.PN.HOSP.TC ---
Today's Communication/Plan
-
Discharge today
Assessment / Plan
Assessment / Plan
Physical Exam
General: Not in acute distress
HEENT: Normocephalic
Respiratory: CTAB
Cardiac: S1/S2 and Regular Rhythm
GI: Soft, Normal Bowel Sounds and Nontender
Musculoskeletal: No Cyanosis and No Edema
Skin: Warm and Dry
Neuro: Awake, Alert and Oriented x 3
Psych: Calm and Intact Judgment/Insight

IMPRESSION:
Findings consistent with acute interstitial pancreatitis the pancreatic head. The common bile duct is top normal in size. No evidence to suggest choledocholithiasis. No main pancreatic duct dilatation.
Stable splenomegaly.

Assessment/Plan
Presentation with Severe Upper Abdominal Pain
Concern for Acute Pancreatitis
Recurrent Pancreatitis
-Monitor urine output and lab-work
-Bladder scans
-Last admission patient had some scrotal swelling and fluid retention -- this admission also had some hand swelling and scrotal swelling -- stopped IV fluids as his symptoms have improved -- okay to stop IV fluids as per GI on
10/13/23 -- patient's hand and scrotal swelling have improved
-Low fat diet on discharge
-Stop Omeprazole, as per gastroenterology
-Continue new medication Famotidine 40 mg PO HS
-GI consulted, recommendations appreciated
-MRI abdomen results noted
History of Cholecystectomy
Wheezing - RESOLVED
-Chest x-ray showed no acute cardiopulmonary process, as per radiologist's report
Hypokalemia -- RESOLVED
Hypomagnesemia -- RESOLVED -- likely from alcohol
-Replaced
-Monitor through morning labs
DVT Prophylaxis: Lovenox
Code Status: Full Code
More than 30 minutes spent in discharge including
Final examination of the patient
Summarizing hospital stay
Instructions for continuing care to all relevant caregivers
Preparation of discharge records, prescriptions, and referral forms
Total time spent (in minutes): 33
Anticipated Discharge: Today
Subjective/Interval History
-
Date of Service: October 14, 2023
Patient was seen and examined. He said he tried solid food and is tolerating his diet well, and would be happy to go home today. He denied any abdominal pain whatsoever. He reported the swelling in his hands and scrotum have resolved.
Objective Data
-
Labs:
Laboratory Results
10/14/23
05:55
WBC 7.1
Hgb 12.8 L
Hct 35.6 L
Plt Count 180
Sodium 136
Potassium 4.2
Chloride 102
Carbon Dioxide 27
BUN 3 L
Creatinine 0.4 L
Glucose 82
Calcium 9.3
Total Bilirubin 1.2
AST 21
ALT 14
Alkaline Phosphatase 137 H
Vital Signs:
Vital Signs
Temp Pulse Resp BP Pulse Ox
98.1 F 74 16 133/87 98
10/14/23 11:25 10/14/23 11:25 10/14/23 11:25 10/14/23 11:25 10/14/23 11:25
I&O
10/13/23 10/14/23 10/15/23
06:59 06:59 06:59
Intake Total 870 / 870 4440 / 4440
Balance 870 / 870 4440 / 4440
--- NOTE | 2023-10-14 12:18 | W.DS.TRANS ---
DC Summary - Probation And Parole Officer
-
Discharge Instructions:
Discharge Diagnosis/Procedures Presentation with Severe Upper Abdominal Pain
Concern for Acute Pancreatitis
Recurrent Pancreatitis
History of Cholecystectomy
Wheezing - RESOLVED
Hypokalemia -- RESOLVED
Hypomagnesemia -- RESOLVED -- likely from
alcohol
Diet Low Fat,As tolerated
Activity As tolerated
Driving Restrictions Not until seen by your Dr
Instructions:
Stand-Alone Forms:
Changes to Home Medications: Yes
Discharge Medications:
DC Medications w/original date entered in [facility]
famotidine 40 mg tablet 40 mg PO HS #30 tabs 10/14/23
folic acid 1 mg tablet 1 mg PO DAILY #20 tabs 10/14/23
oxycodone 5 mg tablet 5 mg PO [id number] severe pain #3 tabs 10/14/23
thiamine HCl (vitamin B1) 100 mg tablet 100 mg PO DAILY #30 tabs 10/14/23
Home Medication Changes
Famotidine, Folic Acid, Thiamine and Oxycodone are new medications.
Omeprazole stopped.
Pending Results: No
Total time spent discharging patient (in min): 33
--- NOTE | 2023-10-14 12:41 | CM ---
Plan: discharge to home today; has transport home
patient does not have PCP or health insurance; [facility]
[2023-10-14 14:58] VITALS: BP 153/100
--- NOTE | 2023-10-14 15:07 | PTCARENOTE ---
Pt tolerated low fat diet for breakfast and lunch without any nausea. Pt states that his epigastric pain that he had this morning is much improved.
[2023-10-15 00:26] LABS: IgG Subclass 4 88 mg/dL (1-123)
--- NOTE | 2023-10-16 20:53 | W.DCSUMMARY ---
Discharge Summary
Discharge Data
Date of Admission: 10/12/23
Date of Discharge: 10/14/23
Total time spent discharging patient (in min): 33
-
Pending Results: No
Hospital Course
33 y/o male with past medical history of recurrent pancreatitis and alcohol use disorder presented with upper abdominal and back pain for a 1-day duration. He also had nausea and vomiting, and it was hard for him to take a deep breath due to the
intense abdominal and back pain. He noted to be drinking 2 beers daily chronically, and denied ever having alcohol withdrawal. Patient was recently hospitalized from August 03, 2023 to August 08, 2023 when he was found to have acute pancreatitis
but did develop some scrotal swelling and was felt to have some mild underlying ascites and was placed on low dose Lasix. He was also given Tramadol for pain.
Patient was admitted for acute pancreatitis, and treated with aggressive intravenous fluids. Gastroenterology was consulted. Abdominal MRI was done, and showed, as per radiologist's report:
'IMPRESSION:
Findings consistent with acute interstitial pancreatitis the pancreatic head. The common bile duct is top normal in size. No evidence to suggest choledocholithiasis. No main pancreatic duct dilatation.
Stable splenomegaly.'
Patient's pain improved, he was tolerating his diet, and he was soon ready for discharge.
Discharge Plan
-
Patient Disposition: Home (Routine Discharge)
Discharge Diagnosis/Procedures: Presentation with Severe Upper Abdominal Pain
Concern for Acute Pancreatitis
Recurrent Pancreatitis
History of Cholecystectomy
Wheezing - RESOLVED
Hypokalemia -- RESOLVED
Hypomagnesemia -- RESOLVED -- likely from alcohol
Condition: Good
Diet: As tolerated and Low Fat
Activity: As tolerated
Driving Restrictions: Not until seen by your Dr
Stand Alone Forms: Return to Work
Referrals:
Geraldine Ledezma MD [Active] - in one to two weeks (Hospital Follow-up for acute pancreatitis)
Dinh Mccann DO [Community] - in one to two weeks ([facility]
Additional Discharge Medication Instructions: Famotidine, Folic Acid, Thiamine and Oxycodone are new medications.
Omeprazole stopped.
Prescriptions:
New
folic acid 1 mg Tablet
1 mg PO DAILY Qty: 20 0RF
famotidine 40 mg Tablet
40 mg PO HS Qty: 30 1RF
thiamine HCl (vitamin B1) 100 mg Tablet
100 mg PO DAILY Qty: 30 0RF
oxycodone 5 mg tablet
5 mg PO [id number] PRN (Reason: severe pain) Qty: 3 0RF
Discontinued
omeprazole 20 mg Tablet,Delayed Release (Dr/Ec)
20 mg PO HS
Discharge Orders:
Discharge Patient (As Directed); Ordered 10/14/23
Ordered By: Michael Morton
Discharge Date and Time
Discharge Date/Time: 10/14/23 15:46
Print Language: ARMENIAN
== END 2023-10-14 15:46 | disposition home or self-care (01) | DRG 440 ==
LOC: 4 EAST ACU 23:09
PROVIDERS: Nurse Practitioner Family; Student in an Organized Health Care Education/Training Program; ADMITTING PHYSICIAN Hospitalist; CONSULT PHYSICIAN Internal Medicine; EMERGENCY PHYSICIAN Emergency Medicine
DX: K85.20 Alcohol induced acute pancreatitis without necrosis or infection (principal); E87.6 Hypokalemia; E83.42 Hypomagnesemia; F10.10 Alcohol abuse, uncomplicated; K21.9 Gastro-esophageal reflux disease without esophagitis; F17.210 Nicotine dependence, cigarettes, uncomplicated; F12.90 Cannabis use, unspecified, uncomplicated
CPT/HCPCS: 71046; 74183; 76700; 80053; 80061; 80306; 80307; 81003; 81015; 82010; 82077; 82787; 82977; 83690; 83735; 84100; 85025; 85027; 85610; 85730; 93005; 96361; 96374; 96375; 96376; 99284; 99406; A9575

== ENCOUNTER 2025-01-20 11:49 | Emergency (ER) | payer SELFPAY ==
[2025-01-20 11:52] VITALS: BP 155/94
[2025-01-20 12:22] LABS: Hematocrit 43.3 % (39.0-52.0); Hemoglobin 15.6 g/dL (13.0-18.0); Mean Corp Hgb Conc. 36.0 g/dL (33.0-37.0); Mean Corpuscular Volume 86.3 fL (80.0-94.0); Nucleated Red Blood Cells % 0 % (-); Platelet Count 276 10^3/uL (130-400); Red Cell Dist. Width 13.0 % (11.5-14.5)
[2025-01-20 12:33] LABS: ALT (SGPT) 30 U/L (0-50); AST (SGOT) 24 U/L (17-59); Albumin 4.8 g/dl (3.5-5.0); Alkaline Phosphatase 74 U/L (38-126); Blood Urea Nitrogen 6 mg/dl (9-20); Calcium 9.8 mg/dl (8.4-10.2); Carbon Dioxide 24 mmol/L (22-30); Chloride 110 mmol/L (98-107); Glucose 93 mg/dl (70-99); Lipase 23 U/L (23-300); Potassium 4.6 mmol/L (3.5-5.1); Sodium 139 mmol/L (135-145); Total Protein 7.9 g/dl (6.3-8.2); eGFR > 60.00
[2025-01-20 12:55] LABS: Urine Character Clear (Clear)
[2025-01-20 15:05] VITALS: BMI 31.4
[2025-01-20 15:17] VITALS: BP 125/89
[2025-01-20] MEDS: NSS 1000 IV (16:00)
[2025-01-20] MEDS: TORADOL 15 MG IV (16:01)
--- NOTE | 2025-01-20 16:38 | ED.GENMED ---
History of Present Illness
<Yasmeen Norton, STAFFING CLERK - Last Filed: 01/20/25 20:26>
General
Chief Complaint: Flank Pain
Source: patient
Exam Limitations: none
Time Seen by Provider: 01/20/25 15:29
Nursing documentation reviewed up to this point in time: agreed with
History of Present Illness
History of Present Illness:
34-year-old male with history of GERD, pancreatitis, cholecystectomy presents with severe pain localized in the left lower abdomen radiating to the back and left testicle. The pain commenced on 5 days ago and initially presented as a low-grade
discomfort. Over time, the pain gradually increased in intensity with episodes becoming more frequent and consistent. As of this morning, the pain has remained constant, described as an 8/10 in severity, compared to a previous episode of
pancreatitis which was rated by the patient as a 10/10. The patient notes urgency in urination, with an increase in pain upon attempting to hold urine, but denies dysuria, hematuria, or changes in urine color or odor. No significant issues with
bowel movements were noted, though the patient mentioned experiencing a transient foul smell earlier. Denies fever/chills. Denies N/V.
Past History
<Yasmeen Norton, STAFFING CLERK - Last Filed: 01/20/25 20:26>
Past History
ED Past Medical History: GERD and Other (Alcoholic pancreatitis)
ED Past Surgical History: Cholecystectomy
Social History
Tobacco: Smoker (1ppd)
Alcohol: Former (2-3 beers/day)
Drug: Marijuana
Personal:
Living: with roommate
Employment: Employed
Review of Systems
<Yasmeen Norton, STAFFING CLERK - Last Filed: 01/20/25 20:26>
Review of Systems
Allergies reviewed?: Yes
All Other Systems: ROS reviewed and negative except as documented in HPI and ROS
Constitutional: Denies fever
ABD/GI: Reports abdominal pain; Denies nausea or vomiting
: Reports flank pain (left) and urgency; Denies dysuria
Phy Exam
<Yasmeen Norton, STAFFING CLERK - Last Filed: 01/20/25 20:26>
Physical Exam
Physical Exam:
GENERAL: No acute distress. A&Ox3.
CONSTITUTIONAL: Afebrile.
EYES: clear, conjunctivae normal
ENMT: moist mucus membranes
RESPIRATORY: Regular respirations, nonlabored, lungs clear.
CARDIOVASCULAR: Regular rate and rhythm, no murmurs, no rubs.
GI: Soft, significantly tender left lower quadrant with guarding, normal BS
MUSCULOSKELETAL: Moves with ease. Well perfused.
SKIN: Warm, dry, pink
PSYCH: Normal mood and affect. Well kept, interactive and appropriate
NEUROLOGIC: Awake, alert and oriented. No focal neurological deficits
Course
<Yasmeen Norton, STAFFING CLERK - Last Filed: 01/20/25 20:26>
Orders/Labs/Results
Orders:
Orders
01/20/25 12:12
Complete Blood Count/With Diff Urgent
Comprehensive Metabolic Panel Urgent
Lipase Urgent
01/20/25 12:48
Urinalysis Reflex To Culture Urgent
Date Specimen was Collected: 01/20/25
Time Specimen was Collected: 11:54
01/20/25 15:38
0.9% Sodium Chloride 1000 ml [Nss] 1,000 ml IV BOLUS
Ketorolac [Toradol] 15 mg IV NOW STA
01/20/25 16:13
CT Abd/pel Without Iv Or Oral Urgent
Comment:
Reason For Exam: L flank and abd pain
01/20/25 16:37
HYDROmorphone [Dilaudid] 1 mg IV NOW STA
Ondansetron Injectable [Zofran] 4 mg IV NOW STA
01/20/25 19:18
HYDROmorphone [Dilaudid] 0.5 mg .ROUTE .STK-MED ONE
01/20/25 19:19
HYDROmorphone [Dilaudid] 0.5 mg IV NOW STA
Abnormal Lab Results
01/20/25
12:12
WBC 11.0 H 10^3/uL
(4.8-10.8)
MCH 31.1 H pg
(27.0-31.0)
Absolute Lymphs (auto) 4.5 H 10^3/uL
(1.2-3.4)
Chloride 110 H mmol/L
(98-107)
BUN 6 L mg/dl
(9-20)
Creatinine 0.6 L mg/dL
(0.7-1.3)
01/20/25 12:12
01/20/25 12:12
Vital Signs
Initial and Last Documented VS:
Initial Vital Signs
Temp Pulse Resp BP Pulse Ox
98.2 F 96 17 155/94 99
01/20/25 11:52 01/20/25 11:52 01/20/25 11:52 01/20/25 11:52 01/20/25 11:52
Last Documented Vital Signs
Temp Pulse Resp BP Pulse Ox
98.2 F 80 18 125/89 97
01/20/25 11:52 01/20/25 15:17 01/20/25 15:17 01/20/25 15:17 01/20/25 16:38
<Champ Espana, DO - Last Filed: 01/20/25 20:53>
Orders/Labs/Results
Orders:
Orders
01/20/25 12:12
Complete Blood Count/With Diff Urgent
Comprehensive Metabolic Panel Urgent
Lipase Urgent
01/20/25 12:48
Urinalysis Reflex To Culture Urgent
Date Specimen was Collected: 01/20/25
Time Specimen was Collected: 11:54
01/20/25 15:38
0.9% Sodium Chloride 1000 ml [Nss] 1,000 ml IV BOLUS
Ketorolac [Toradol] 15 mg IV NOW STA
01/20/25 16:13
CT Abd/pel Without Iv Or Oral Urgent
Comment:
Reason For Exam: L flank and abd pain
01/20/25 16:37
HYDROmorphone [Dilaudid] 1 mg IV NOW STA
Ondansetron Injectable [Zofran] 4 mg IV NOW STA
01/20/25 19:18
HYDROmorphone [Dilaudid] 0.5 mg .ROUTE .STK-MED ONE
01/20/25 19:19
HYDROmorphone [Dilaudid] 0.5 mg IV NOW STA
Abnormal Lab Results
01/20/25
12:12
WBC 11.0 H 10^3/uL
(4.8-10.8)
MCH 31.1 H pg
(27.0-31.0)
Absolute Lymphs (auto) 4.5 H 10^3/uL
(1.2-3.4)
Chloride 110 H mmol/L
(98-107)
BUN 6 L mg/dl
(9-20)
Creatinine 0.6 L mg/dL
(0.7-1.3)
01/20/25 12:12
01/20/25 12:12
Vital Signs
Initial and Last Documented VS:
Initial Vital Signs
Temp Pulse Resp BP Pulse Ox
98.2 F 96 17 155/94 99
01/20/25 11:52 01/20/25 11:52 01/20/25 11:52 01/20/25 11:52 01/20/25 11:52
Last Documented Vital Signs
Temp Pulse Resp BP Pulse Ox
98.2 F 80 18 125/89 97
01/20/25 11:52 01/20/25 15:17 01/20/25 15:17 01/20/25 15:17 01/20/25 16:38
<Yasmeen Norton NP - Last Filed: 01/20/25 20:26>
MDM/Problems Addressed
Differential Diagnosis Includes:
Kidney stone, diverticulitis, epididymitis testicular torsion, pancreatitis, gastroenteritis
MDM/Problems Addressed:
34-year-old male with history of GERD, pancreatitis, cholecystectomy presents with severe pain localized in the left lower abdomen radiating to the back and left testicle. The pain commenced on 5 days ago and initially presented as a low-grade
discomfort. Over time, the pain gradually increased in intensity with episodes becoming more frequent and consistent. As of this morning, the pain has remained constant, described as an 8/10 in severity, compared to a previous episode of
pancreatitis which was rated by the patient as a 10/10. The patient notes urgency in urination, with an increase in pain upon attempting to hold urine, but denies dysuria, hematuria, or changes in urine color or odor. No significant issues with
bowel movements were noted, though the patient mentioned experiencing a transient foul smell earlier. Denies fever/chills. Denies N/V.
Problem:
Acute:
- Severe left lower abdominal pain with radiation to the back and left testicle
- Urinary urgency without dysuria or hematuria
- History of pancreatitis for pain comparison
4:40 PM:
CBC with no clinically significant abnormality
CMP with no clinically significant abnormality
UA negative
Patient states no relief after Toradol, and he feels nauseous, Zofran and Dilaudid ordered
7:30 p.m.
Remedicated for pain at pt request
CT backed up, pt just went to CT
8:[address] abd pelvis w IV only contrast radiology report read:
1. Mild diffuse urinary bladder wall thickening suggesting cystitis.
2. Mild hepatosplenomegaly.
3. Previous cholecystectomy.
<Yasmeen V. Day, STAFFING CLERK - Last Filed: 01/20/25 20:26>
*Pulse Oximetry
SaO2: 97
Oxygen Mode of Delivery: Room air
ED Attending Note
<Yasmeen Norton, STAFFING CLERK - Last Filed: 01/20/25 20:26>
-
Portions of this chart may have been created with voice recognition software.� Occasional wrong word or��sound alike� substitutions may have occurred due to the inherent limitations of voice recognition software.
<Champ Espana, DO - Last Filed: 01/20/25 20:53>
ED Attending Note
Patient seen and examined by attending physician: Yes
ED Attending Note:
I reviewed and agree with history treatment plan by Morenita Norton. My exam revealed 34-year-old male no acute distress, mild left-sided. No rebound or guarding. CT abdomen pelvis shows no acute findings, possible cystitis. Unclear etiology of pain.
Stable for discharge.
Discharge Plan
Departure
Patient Disposition: Home (Routine Discharge)
Date of Disposition: 01/20/25
Time of Disposition: 20:47
Patient with high blood pressure during this ER visit?: No
Condition: Good
Discharge Problem:
Left groin pain
Instructions: Abdominal Pain
Prescriptions:
No Action
folic acid 1 mg Tablet
1 mg PO DAILY Qty: 20 0RF
famotidine 40 mg Tablet
40 mg PO HS Qty: 30 1RF
thiamine HCl (vitamin B1) 100 mg Tablet
100 mg PO DAILY Qty: 30 0RF
oxycodone 5 mg tablet
5 mg PO [id number] PRN (Reason: severe pain) Qty: 3 0RF
Referrals:
NONE,* [Family Provider, Internal Medicine]
Leodan Correa Jr., MD [Active, Urology] - As needed
Activity Restrictions/Additional Instructions:
As we discussed, nothing worrisome in your workup here today. Follow-up with a urologist if your symptoms persist
Ibuprofen 600 mg, with food, every 6 hours as needed for pain.
Interventions
Interventions:
*Risk Screen - Suicide Last Done: 01/20/25 11:54
*General Assessment Last Done: 01/20/25 11:54
*Neglect/Abuse Screening Last Done: 01/20/25 11:54
*ED- Fall Risk Assessment Last Done: 01/20/25 15:05
*ED COVID-19 Vaccine History Last Done: 01/20/25 11:54
XB-Ncwvsx-Rubimldbfp Assessment Last Done: 01/20/25 15:16
ED-Male Genitourinary Assessment Last Done: 01/20/25 15:16
Discharge Date and Time
Print Language: CHINESE
[2025-01-20] MEDS: ZOFRAN 4 MG IV (16:41)
[2025-01-20] MEDS: DILAUDID 1 MG IV (16:44)
[2025-01-20] MEDS: DILAUDID 0.5 MG IV (19:20)
[2025-01-20 21:31] VITALS: BP 120/84
== END 2025-01-20 21:00 | disposition home or self-care (01) ==
LOC: EMR 11:49
PROVIDERS: Emergency Medicine; EMERGENCY PHYSICIAN Emergency Medicine
DX: R10.32 Left lower quadrant pain (principal); K21.9 Gastro-esophageal reflux disease without esophagitis; F17.200 Nicotine dependence, unspecified, uncomplicated; Z87.19 Personal history of other diseases of the digestive system; Z90.49 Acquired absence of other specified parts of digestive tract
CPT/HCPCS: 99284; 96374; 96375; 96376; 74176; 80053; 81003; 83690; 85025

== ENCOUNTER 2025-01-31 09:25 | Emergency (ER) | payer SELFPAY ==
[2025-01-31 09:28] VITALS: BP 138/94
[2025-01-31] MEDS: OMNIPAQUE 50 ML PO (10:25)
[2025-01-31] MEDS: ZOFRAN 4 MG IV (10:25)
[2025-01-31] MEDS: TORADOL 15 MG IV (10:25)
--- NOTE | 2025-01-31 10:26 | ED.GENMED ---
History of Present Illness
General
Chief Complaint: Abdominal Symptoms
Time Seen by Provider: 01/31/25 09:39
History of Present Illness
History of Present Illness:
34-year-old male with prior history of pancreatitis presenting to the emergency department for persistent lower abdominal pain. Patient reports pain for the past 3 weeks. Notes that the pain is in the left lower constant, sometimes radiates to his
back. Reports abdominal surgery of cholecystectomy. He was seen in the hospital a week ago, had unremarkable workup including CT abdomen pelvis without contrast. He notes that the pain is still continuing which prompted him to come back. Notes
nausea without vomiting. Reports some urinary urgency. Denies chest pain or difficulty breathing. Denies additional acute medical complaints
Past History
Past History
ED Past Medical History: GERD and Other (Alcoholic pancreatitis)
ED Past Surgical History: Cholecystectomy
Social History
Tobacco: Smoker (1ppd)
Alcohol: Former (2-3 beers/day)
Drug: Marijuana
Personal:
Living: with roommate
Employment: Employed
Phy Exam
Physical Exam
Physical Exam:
General: Well-appearing, no clinical signs of dehydration, nontoxic and in no acute distress
HEENT: protecting airway
Neck: appears supple
CV: Normal heart rate, regular rhythm, no evidence of cyanosis
Resp: No accessory muscle use, no increased work of breathing, lungs clear to auscultation bilaterally
Abd: Soft and non-distended, mild tenderness to the left lower quadrant. Tenderness to periumbilical region with small umbilical hernia, tender to palpation, however reducible
Extremities: No deformities, no swelling, no erythema, pulses and sensation intact
Neuro: alert, no focal neurologic deficit
: deferred
Rectal: deferred
Psych: Normal affect
Skin: Intact
Course
Orders/Labs/Results
Orders:
Orders
01/31/25 10:06
CT Abd/pel W Iv And Oral Contr Urgent
Comment:
Reason For Exam: LLQ and umbilical pain
Iohexol [Omnipaque] See Protocol PO NOW STA
Ketorolac [Toradol] 15 mg IV NOW STA
01/31/25 10:22
Ondansetron Injectable [Zofran] 4 mg .ROUTE .STK-MED ONE
01/31/25 10:24
Ondansetron Injectable [Zofran] 4 mg IV NOW STA
01/31/25 10:26
Ondansetron Injectable [Zofran] 4 mg IV NOW STA
01/31/25 10:36
Complete Blood Count/With Diff Urgent
Comprehensive Metabolic Panel Urgent
Lipase Urgent
01/31/25 11:48
Urinalysis Reflex To Culture Urgent
Date Specimen was Collected: 01/31/25
Time Specimen was Collected: 10:58
01/31/25 12:00
Morphine Sulfate 4 mg IV NOW STA
01/31/25 13:19
EKG [Electrocardiogram (*1)] Urgent
Reason for Study: Chest Pain
EKG- Treatment ONCE
01/31/25 14:51
Ciprofloxacin HCl [Cipro] 500 mg PO ONCE ONE
Abnormal Lab Results
01/31/25
10:36
Absolute Lymphs (auto) 4.0 H 10^3/uL
(1.2-3.4)
Absolute Monos (auto) 0.8 H 10^3/uL
(0.1-0.6)
Chloride 108 H mmol/L
(98-107)
BUN 8 L mg/dl
(9-20)
Creatinine 0.6 L mg/dL
(0.7-1.3)
Glucose 121 H mg/dl
(70-99)
01/31/25 10:36
01/31/25 10:36
Vital Signs
Initial and Last Documented VS:
Initial Vital Signs
Temp Pulse Resp BP Pulse Ox
97.6 F 99 16 138/94 98
01/31/25 09:28 01/31/25 09:28 01/31/25 09:28 01/31/25 09:28 01/31/25 09:28
Last Documented Vital Signs
Temp Pulse Resp BP Pulse Ox
97.6 F 99 16 138/94 98
01/31/25 09:28 01/31/25 09:28 01/31/25 09:28 01/31/25 09:28 01/31/25 10:29
MDM/Problems Addressed
MDM/Problems Addressed:
34-year-old male presenting for persistent lower abdominal pain. Vital signs on arrival are normal.
On exam, patient is resting comfortably, no acute distress or discomfort. Mild tenderness to the left lower quadrant, which is where patient is reporting pain. However, also tender to the umbilical region. Palpable hernia. Did review patient's
hospital visit from a week ago, had a CT without IV or oral contrast. No acute process at that time. There is mention of a fat-containing umbilical hernia. Could be contributing to patient's symptoms, however without present concern for bowel
ischemia or compromise. Given limitations of the CT without contrast, will obtain CT with IV and oral contrast to ensure no additional acute pathology to be contributing to patient's symptoms. Toradol administered for pain.
14:50 -CT shows evidence of possible proctocolitis. Patient does note ongoing diarrhea daily for the past 3 weeks, which could be etiology of patient's discomfort. Additionally, there is inflammatory changes to the bladder. Patient notes that he
has had some feelings of urgency, however urinalysis without sign of infection. There is again mention of umbilical hernia, fat-containing. Without any present concern for bowel compromise. Again given duration of symptoms, will start patient on
antibiotics for colitis. Will start on ciprofloxacin which may cover for both colitis and urinary tract infection. Ultimately feel stable for discharge. Will provide outpatient surgical follow-up regarding his hernia. Return precautions
discussed and patient verbalized understanding
*Pulse Oximetry
SaO2: 98
Oxygen Mode of Delivery: Room air
Patient hypoxic: no
*Critical Care Note
Total Time (30-74mins, 75-104mins- exclusive of procedures): Not Applicable
ED Attending Note
-
Portions of this chart may have been created with voice recognition software.� Occasional wrong word or��sound alike� substitutions may have occurred due to the inherent limitations of voice recognition software.
Discharge Plan
Departure
Prescriptions:
No Action
folic acid 1 mg Tablet
1 mg PO DAILY Qty: 20 0RF
famotidine 40 mg Tablet
40 mg PO HS Qty: 30 1RF
thiamine HCl (vitamin B1) 100 mg Tablet
100 mg PO DAILY Qty: 30 0RF
oxycodone 5 mg tablet
5 mg PO [id number] PRN (Reason: severe pain) Qty: 3 0RF
Referrals:
UNKNOWN - PT DOES,NOT KNOW [Family Provider]
Interventions
Interventions:
*Risk Screen - Suicide Last Done: 01/31/25 09:30
*General Assessment Last Done: 01/31/25 09:30
Discharge Date and Time
Print Language: URDU
[2025-01-31 10:49] LABS: Hematocrit 44.4 % (39.0-52.0); Hemoglobin 15.7 g/dL (13.0-18.0); Mean Corp Hgb Conc. 35.4 g/dL (33.0-37.0); Mean Corpuscular Volume 85.7 fL (80.0-94.0); Nucleated Red Blood Cells % 0 % (-); Platelet Count 262 10^3/uL (130-400); Red Cell Dist. Width 12.5 % (11.5-14.5)
[2025-01-31 11:03] LABS: ALT (SGPT) 29 U/L (0-50); AST (SGOT) 27 U/L (17-59); Albumin 4.7 g/dl (3.5-5.0); Alkaline Phosphatase 69 U/L (38-126); Blood Urea Nitrogen 8 mg/dl (9-20); Calcium 9.6 mg/dl (8.4-10.2); Carbon Dioxide 22 mmol/L (22-30); Chloride 108 mmol/L (98-107); Glucose 121 mg/dl (70-99); Lipase 24 U/L (23-300); Potassium 4.5 mmol/L (3.5-5.1); Sodium 137 mmol/L (135-145); Total Protein 7.5 g/dl (6.3-8.2); eGFR > 60.00
[2025-01-31 12:07] LABS: Urine Character Clear (Clear)
[2025-01-31] MEDS: MORPHINE SULFATE 4 MG IV (12:10)
[2025-01-31] MEDS: CIPRO 500 MG PO (15:07)
[2025-01-31 15:19] VITALS: BP 124/74
== END 2025-01-31 15:20 | disposition home or self-care (01) ==
LOC: EMR 09:25
PROVIDERS: EMERGENCY PHYSICIAN Student in an Organized Health Care Education/Training Program
DX: K52.9 Noninfective gastroenteritis and colitis, unspecified (principal); K42.9 Umbilical hernia without obstruction or gangrene; R10.9 Unspecified abdominal pain; F17.200 Nicotine dependence, unspecified, uncomplicated
CPT/HCPCS: 99285; 96374; 96375 ×2; 74177; 80053; 81003; 83690; 85025; 93005; Q9967